=== PATIENT | female | born 1940 | race Caucasian/White ===

== ENCOUNTER 2018-04-12 09:39 | Day surgery (SDC) | payer MEDICARE ==
[~2018-04-12] VITALS: Ht 162.6 cm; Wt 53.8 kg
[~2018-04-12 09:39] MED LIST: Artificial Tea1 EACH BOTHEYES; CONEST.625; CONEST.625 PO; Coq-10100 MG PO; FISH OIL + D31 EACH; MAGCHL64ER; METO25ER; Magnesium500 MG PO; PRAV20; PRAV20 PO; TEMA30; TEMA30 PO; Tart Cherry Ca1 EACH PO; Toprol Xl25 MG PO; VITAMIN D3400 UNIT PO; XARELTO20 MG; XARELTO20 MG PO
--- NOTE | 2018-04-12 10:30 | NUR ---
04/12/18 1030 Kelsea Tanner FIRST IV UNSUCCESS IN R HAND SECOND IV SUCCESS IN R HAND
== END 2018-04-12 11:45 | disposition home or self-care (01) ==
LOC: ORSCSDS 09:39
PROVIDERS: Student in an Organized Health Care Education/Training Program
PROC: 0DJD8ZZ Inspection of Lower Intestinal Tract, Via Natural or Artificial Opening Endoscopic (ICD-10-PCS; principal; 2018-04-12 11:00)
DX: Z12.11 Encounter for screening for malignant neoplasm of colon (principal); K57.30 Diverticulosis of large intestine without perforation or abscess without bleeding; I48.91 Unspecified atrial fibrillation; E03.9 Hypothyroidism, unspecified; E78.5 Hyperlipidemia, unspecified; E78.00 Pure hypercholesterolemia, unspecified; Z79.01 Long term (current) use of anticoagulants; Z79.899 Other long term (current) drug therapy
CPT/HCPCS: J7120

== ENCOUNTER → 2019-06-20 | Outpatient (CLI) | payer MEDICARE | END | disposition home or self-care (01) | LOC: LAB SHORT 15:03 → PLD 15:03 | DX: C44.519 Basal cell carcinoma of skin of other part of trunk (principal) | CPT/HCPCS: 88305 ==

== ENCOUNTER → 2019-07-20 | Outpatient (CLI) | payer MEDICARE | END | disposition home or self-care (01) | LOC: LAB SHORT 12:33 → PLD 12:33 | DX: C44.519 Basal cell carcinoma of skin of other part of trunk (principal) | CPT/HCPCS: 88305 ==

== ENCOUNTER → 2020-05-12 | Outpatient (CLI) | payer MEDICARE | END | disposition home or self-care (01) | LOC: LAB SHORT 09:54 → PLD 09:54 | DX: N39.0 Urinary tract infection, site not specified (principal) | CPT/HCPCS: 87077; 87086; 87186 ==

== ENCOUNTER → 2020-12-25 | Outpatient (CLI) | payer MEDICARE | LOC: LAB SHORT 10:50 → LAB 10:50 | DX: D48.5 Neoplasm of uncertain behavior of skin (principal); C44.722 Squamous cell carcinoma of skin of right lower limb, including hip; D23.39 Other benign neoplasm of skin of other parts of face; D22.39 Melanocytic nevi of other parts of face; Z88.1 Allergy status to other antibiotic agents | CPT/HCPCS: 88305; 88312 ==

== ENCOUNTER → 2021-01-31 | Outpatient (CLI) | payer MEDICARE | LOC: LAB 11:52 → LAB SHORT 11:52 | DX: C44.722 Squamous cell carcinoma of skin of right lower limb, including hip (principal); Z88.1 Allergy status to other antibiotic agents | CPT/HCPCS: 88305 ==

== ENCOUNTER → 2021-02-21 | Outpatient (CLI) | payer MEDICARE | END | disposition home or self-care (01) | LOC: LAB SHORT 12:04 | DX: C44.622 Squamous cell carcinoma of skin of right upper limb, including shoulder (principal) | CPT/HCPCS: 88305 ==

== ENCOUNTER → 2021-03-27 | Outpatient (CLI) | payer MEDICARE | END | disposition home or self-care (01) | LOC: LAB 15:03 → LAB SHORT 15:03 | DX: C44.622 Squamous cell carcinoma of skin of right upper limb, including shoulder (principal) | CPT/HCPCS: 88305 ==

== ENCOUNTER → 2022-03-31 | Outpatient (CLI) | payer MEDICARE ==
[2022-03-31 14:48] LABS: C DIFFICILE DNA NEGATIVE (Negative)
== END ==
LOC: LAB SHORT 12:59 → LAB 12:59
PROVIDERS: Registered Nurse Oncology
DX: C43.9 Malignant melanoma of skin, unspecified (principal); R19.7 Diarrhea, unspecified
CPT/HCPCS: 87015; 87045; 87046; 87205; 87493; 87899

== ENCOUNTER → 2025-03-08 | Outpatient (CLI) | payer MEDICARE | LOC: LAB SHORT 17:19 → LAB 17:19 | DX: N39.0 Urinary tract infection, site not specified (principal) | CPT/HCPCS: 87086 ==